=== PATIENT | male | born 1980 | race Caucasian/White ===

== ENCOUNTER → 2019-03-14 | Outpatient (CLI) | payer OTHER ==
--- NOTE | 2019-03-14 12:54 | XR ---
EXAMINATION TYPE: XR elbow complete RT DATE OF EXAM: 03/14/2019 CLINICAL HISTORY: Right elbow pain after hyperextension TECHNIQUE: Frontal, lateral and oblique images of the right elbow are obtained. COMPARISON: None FINDINGS: There is age-indeterminate avulsion of an olecranon osteophyte at the insertion of the tric eps. Minimal soft tissue swelling is seen over the triceps. No abnormal fat pad signs are seen. The overlying soft tissue appears unremarkable. IMPRESSION: Age-indeterminate avulsion fracture of an olecranon enthesophyte at the insertion of the triceps. There is also mild soft tissue swelling over the triceps. Correlate for point tenderness. No additional fracture is seen.
== END | disposition home or self-care (01) ==
LOC: RADXRMAIN 12:25
PROVIDERS: ATTEND Emergency Medicine
DX: M25.421 Effusion, right elbow (principal)

== ENCOUNTER 2020-05-23 18:54 | Emergency (ER) | payer OTHER ==
[2020-05-23] MEDS ORDERED: DIPH,PERTUS(ACELL)TETVAC-LF 0.5 ML VIAL IM ONE (19:42)
[2020-05-23] MEDS ORDERED: ceFAZolin 1,000 MG VIAL (IM USE) IM STA (19:42)
[2020-05-23] MEDS ORDERED: LIDOCAINE 1% INJ 10MG/ML (20 ML MDV) SQ STA (19:43)
--- NOTE | 2020-05-23 20:10 | XR ---
EXAMINATION TYPE: XR hand complete LT DATE OF EXAM: 05/23/2020 COMPARISON: NONE HISTORY: Laceration fourth digit TECHNIQUE: 3 views FINDINGS: There is soft tissue deformity at the tip of the ring finger consistent with laceration. Th ere is also fracture of the tuft of the distal phalanx. There is no dislocation. IMPRESSION: Fracture of the tuft of the distal phalanx of the ring finger left hand with laceration d eformity.
--- NOTE | 2020-05-23 21:05 | ED ---
General Adult HPI - General Chief complaint: Wound/Laceration Stated complaint: Finger injury Time Seen by Provider: 05/23/20 19:13 Source: patient, RN notes reviewed, old records reviewed Mode of arrival: ambulatory Limitations: no limitations - History of Present Illness Initial comments: 39-year-old male patient presents today for evaluation of injury to the left distal fourth digit. Patient reports that he was splitting wood. Patient had a conveyor belts which takes the splint would plus in a pile. Patient reports that the pieces of wood from the conveyor belts fell down crushing his finger between 2 pieces of wood. He has injured the exception of the fourth digit on the left hand. Last tetanus around 5 years ago. Denies any other complaints. Systemic: Pt denies fatigue, fever/chills, rash. Pt denies weakness, night sweats, weight loss. Neuro: Pt denies headache, visual disturbances, syncope or pre-syncope. HEENT: Pt denies ocular discharge or irritation, otalgia, rhinorrhea, pharyngitis or notable lymphadenopathy. Cardiopulmonary: Pt denies chest pain, SOB, heart palpitations, dyspnea on exertion. Abdominal/GI: Pt denies abdominal pain, n/v/d. : Pt denies dysuria, burning w/ urination, frequency/urgency. Denies new onset urinary or bowel incontinence. MSK: Pt denies myalgia, loss of strength or function in extremities. Neuro: Pt denies new onset weakness, paresthesias. - Related Data Previous Rx's Medication Instructions Recorded Cephalexin [Keflex] 500 mg PO Q6HR 10 Days #40 cap 05/23/20 Allergies Allergy/AdvReac Type Severity Reaction Status Date / Time No Known Allergies Allergy Verified 05/23/20 19:02 Review of Systems ROS Statement: Those systems with pertinent positive or pertinent negative responses have been documented in the HPI. ROS Other: All systems not noted in ROS Statement are negative. Past Medical History Past Medical History: Pneumonia, Pulmonary Embolus (PE) History of Any Multi-Drug Resistant Organisms: None Reported Additional Past Surgical History / Comment(s): eye surgery Past Psychological History: No Psychological Hx Reported Smoking Status: Never smoker Past Alcohol Use History: None Reported Past Drug Use History: None Reported General Exam - General Exam Comments Initial Comments: Constitutional: NAD, AOX3, Pt has pleasant affect. HEENT: NC/AT, trachea midline, neck supple, no lymphadenopathy. External ears appear normal, without discharge. Mucous membranes moist. Eyes PERRLA, EOM intact. There is no scleral icterus. No pallor noted. Cardiopulmonary: RRR, no murmurs, rubs or gallops, no JVD noted. Lungs CTAB in anterior and posterior lawson. No peripheral edema. Abdominal exam: Abdomen soft and non-distended. Neuro: CN II-XII grossly intact. No nuchal rigidity. No raccon eyes, no hunter sign, no hemotympanum. No cervical spinal tenderness. MSK: 3 cm laceration to the distal aspect of the fourth digit. Medial to the nail did not affect the nailbed wraps around the distal aspect of the digit. Vigorously irrigated with 1 L of normal saline. Approximated with 5 simple interrupted sutures. Neurovascularly intact before and after suture placement. Capillary refill less than 2 seconds. Full active range of motion of digit. Limitations: no limitations Course Vital Signs 05/23/20 18:57 Temperature 98.1 F Pulse Rate 86 Respiratory 20 Rate Blood Pressure 162/77 O2 Sat by Pulse 98 Oximetry Procedures - Laceration Laceration #1 Consent Obtained: verbal consent Indication: laceration Site: upper extremity (finger 4th digit ) Size (cm): 3 Description: irregular Depth: simple, single layer Anesthetic Used: lidocaine 1% Anesthesia Technique: local infiltration, nerve block Amount (mls): 4 Pre-repair: wound explored, irrigated extensively (1L NS ) Type of Sutures: nylon Size of Sutures: 5-0 Number of Sutures: 5 Technique: simple, interrupted Patient Tolerated Procedure: well, no complications Medical Decision Making - Medical Decision Making 39-year-old male patient with seizure laceration to distal aspect of fourth digit. Recently laceration. Patient will signs stable, afebrile. Tetanus is updated. Wound vigorously irrigated. Plain films Pletal fracture. Wound was approximated with 5 simple sutures. Discussed case with orthopedics Jose Alberto Mensah. They'll see patient in office. We'll place on Keflex 4 times a day. I administered [facility] emergency department. Finger will be immobilized with splint. Case discussed with Dr. Hunt. Disposition Clinical Impression: Laceration, Finger fracture Disposition: HOME SELF-CARE Condition: Stable Instructions (If sedation given, give patient instructions): Laceration (ED), Care For Your Stitches (ED), Finger Fracture (ED) Additional Instructions: follow up with orthopedic consult tomorrow. Follow-up with primary care provider in 1-2 days. Continue to wear finger splint. Please return for suture removal: Hand: 7-10 days Please monitor for signs and symptoms of infection including: redness, warmth, drainage, discharge. Please return to ED if these signs or symptoms occur, new signs or symptoms develop or if condition worsens in anyway. Prescriptions: Cephalexin [Keflex] 500 mg PO Q6HR 10 Days #40 cap Is patient prescribed a controlled substance at d/c from ED?: No Referrals: Kurtis Mandel MD [Primary Care Provider] - 1-2 days Louie Mensah PAC [PHYSICIAN EMPLOYMENT SERVICE SPECIALIST] - 1-2 days
[2020-05-23 21:14] VITALS: RESP 19
[2020-05-23 21:18] VITALS: BP 132/98; PULSE 68; TEMP 97.7
== END 2020-05-23 21:15 | disposition home or self-care (01) ==
LOC: EC 18:54
DX: S61.215A Laceration without foreign body of left ring finger without damage to nail, initial encounter (principal); Z23 Encounter for immunization; W22.8XXA Striking against or struck by other objects, initial encounter; Y92.89 Other specified places as the place of occurrence of the external cause
CPT/HCPCS: 99284; 90471; 96372; 12002; 73130; 90715; J0690; J2001

== ENCOUNTER 2020-05-30 12:59 | Day surgery (SDC) | payer OTHER ==
[2020-05-29 11:23] VITALS: BMI 33.9
[~2020-05-30 12:59] MED LIST: ACETAMINOPHEN TAB 500 MG TAB PO ONE; DEXAMETHASONE SOD PHOSPHATE 10 MG/ML 1 ML VIAL IV ONE; LACTATED RINGERS 1,000 ML IV SCH; LIDOCAINE 1% (10MG/ML) FOR IV START INTRADERMA PRN
[2020-05-30 13:15] VITALS: RESP 16; TEMP 98.2
[2020-05-30] MEDS ORDERED: ONDANSETRON 4 MG/2 ML VIAL ONE (13:16)
[2020-05-30] MEDS ORDERED: ONDANSETRON 4 MG/2 ML VIAL IVP ONE (14:11)
--- NOTE | 2020-05-30 14:27 | P.HPOR ---
History of Present Illness H&P Date: 05/30/20 Chief Complaint: R RF crush injury Patient presents with left ring finger injury. He states that on 05/23/2020 his finger was crushed between two pieces of firewood at his home in the yard. Patient was seen at [facility] ER where he had sutures and was placed in a splint. Patient currently takes Keflex 500mg every 6 hours and daily Aspirin. Patient notes throbbing pain. States intact sensation. Denies any other injury. Review of Systems 14 points review of systems completed and as stated in HPI or otherwise negative. Past Medical History Past Medical History: Deep Vein Thrombosis (DVT), Pneumonia, Pulmonary Embolus (PE) Additional Past Medical History / Comment(s): splint on for sutured and fractured 4th digit left hand-injured between to pieced of wood,hx Alpha-1 Antitrypsin Deficiency affecting lungs,chest tube x3 History of Any Multi-Drug Resistant Organisms: None Reported Additional Past Surgical History / Comment(s): eye surgery,bronchoscopy Past Anesthesia/Blood Transfusion Reactions: No Reported Reaction Smoking Status: Former smoker - Past Family History Mother Additional Family Medical History / Comment(s): Alpha-1 Antitrypsin Deficiency affecting lungs Medications and Allergies Home Medications Medication Instructions Recorded Confirmed Type Cephalexin [Keflex] 500 mg PO Q6HR 10 Days #40 cap 05/23/20 05/29/20 Rx Aspirin 81 mg PO DAILY 05/29/20 05/29/20 History Naproxen Sodium [Aleve] 220 mg PO BID PRN 05/29/20 05/29/20 History Allergies Allergy/AdvReac Type Severity Reaction Status Date / Time No Known Allergies Allergy Verified 05/30/20 13:12 Physical Examination Osteopathic Statement: *. No significant issues noted on an osteopathic structural exam other than those noted in the History and Physical/Consult. General: Well appearing, well nourished in no distress. Finger: left ring finger Tenderness to Palpation: 4th distal phalanx: yes Inspection: Pt has laceration to the radial aspect of the right RF peronychium extending into the nailbed under the nail plate which is still in place. Injury pictures the patient showed me concern me for a nail bed injury due to sub ungual hematoma, extension of the laceration deep to the nail plate that cannot be assessed due to retained nail plate and the fracture nature. Finger Range of Motion: limited scondary to pain. DIP/PTP and MCP joints stable. Finger Strength: normalwith increased pain with ROM of DIP joint. Neuro: Sensation WNL. Results X-Ray: left ring finger: distal phalanx fracture minimal displacement. Assessment and Plan Assessment: 39 yo M, left ring finger distal phalanx tuft fracture with likely nailbed injury, eponychial and peronychial laceration. Plan: Orthopedic Surgery Risk Review Behzad Munguia is a 39 yo RHD male presenting for evaluation of sudden onset RRF pain, swelling laceration and fracture after catching it between two pieces of wood. He was seen in ED, they sutured his laceration but did not evaluate his nail bed. It was my pleasure to have seen and examined Behzad Munguia]. In our visit today we have had a chance to go over subjective complaints, physical examination findings and treatments including the natural course his tory without intervention and various interventional options. His imaging demonstrates distal tuft fracture of RRF with open laceration . On physical exam, Behzad Munguia] demonstrates pain with motion of RRF, which is NV intact at this time. I have explained to the patient that this fracture needs stabilization. Based on the patients imaging, physical exam, and the rapid progression and disabling nature of her symptoms, at this time I recommend surgery in the form or a: I&D with nailbed and laceration repair RRF I discussed the risk and benefits of this procedure at length with Behzad Munguia]. Questions were invited and answered, and the patient wishes to proceed as outlined below. Currently, I am recommendin. Irrigation and debridment of RIGHT RING FINGER with removal of nail plate and possible nailbed repair. 2. Review of surgical risks and benefits as well as an educational packet on the proposed surgical procedure. Risks: All surgical procedures come with inherent risks, including those related to positioning, anesthesia, intraoperative findings, and postoperative complications. It is important to understand that surgery does not come with any guarantee of a successful outcome as complications and adverse events are always possible. The patient was given a handout discussing the surgical procedure and risks associated with the intervention, both of which were discussed with the patient. These risks include but are not limited to the following: - Experiencing same, different or even worse symptoms compared to before surgery. - Requiring further surgery or other forms of treatment presently or at some time in the future . - On an extreme but fortunately relatively rare basis severe complication such as blindness, stroke, heart attack, temporary and/or permanent nerve injury, paralysis, coma, or may occur, sometimes without known explanation. - Surgical complications may include but are not limited to risk of infection, fluid accumulation in the surgical dissection site, including a seroma or hematoma, that requires additional surgery, wound drainage, bleeding, new numbness or weakness, vision changes/loss, spinal fluid leakage, non-healing and/or infected incision, headaches, difficulty or inability to swallow, hoarseness, hemopneumothorax, pneumothorax, injury to nerves, spinal cord, blood vessels, lymphatics or other vital organs (i.e., bowel injury, injury to the great vessels); heterotopic bone formation; complications related to the hardware such as screws, rods, including misplaced hardware, device failure, hardware fracture/breakage, or hardware loosening; retained surgical instrumentations or devices and the need for further surgery. - Medical risks of the planned surgery include but are not limited to generalized Infections to the whole body or local areas outside of the surgical site (sepsis), heart attack, bleeding, anaphylaxis, meningitis, seizure, epilepsy, hearing loss, burn carbajal, laceration of the head or other areas of the body, bruising, hypersensitivity of the skin, bladder over distension; allergic reaction; shoulder injury related to positioning; fat, blood and air clots to other areas of the body like heart, lungs, brain; failure of internal organs such as lungs, kidneys, liver and excessive bleeding. If blood transfusions are necessary, note that transfusions may cause intolerance reactions such as anaphylaxis or other complex reactions. Despite best efforts, the results of surgery might not heal in terms of bone, soft tissues such as skin, fascia, ligaments, and joints. [facility] is an educational center that serves as a training facility for physician assistants, nurses, orthopedic residents and fellows. Residents are physicians who are completing their surgical intensive training following medical school. They assist in the operating room with direct supervision of the attending surgeons. [place] are surgeons who have completed their training and eligible for board certification. They have opted for an elective year of more specialized training in their field. They assist in the operating room under the supervision of the attending surgeons. Physician assistants are medically trained surgical providers who function in the outpatient, inpatient, and operating room setting under the direct supervision of the attending surgeon. [facility] has multiple operating rooms with single and overlapping rooms running daily. They currently function under the required guidelines as produced by the [facility] Finance Committee with regards to the overlapping rooms and will continue to comply with changes to this policy as they occur. The requirements include and are complied with as follows: (1) the critical portions of the overlapping rooms will not occur at the same time, (2) the attending physician will be physically present during the critical portions of the procedure and immediately available during the entire case, and (3) a back-up attending is designated should the primary attending not be immediately available. The patient has had a chance to review all the listed information, has been given print outs detailing this information, and has had all his/her questions answered to their satisfaction. It was my pleasure to have seen and examined [Behzad Munguia]. In our visit today we have had a chance to go over my understanding of our patient's current condition, the natural course history without intervention and various interventional options. Questions were invited and answered, and the patient wishes to proceed as outlined above. I have seen and examined the patient for 25 minutes and we have spent more than 50% of the time in repeat and detailed counseling about the patient's condition, its natural course history with out and as much as can be predicted with surgery and re-review of various surgical treatment options. In conclusion,Behzad Munguia] requested we proceed with the above suggested surgery and are willing to accept risks and limitations of the suggested surgery as nature of the disease process and our best attempts at treatment for the co ndition. Thank you again for allowing us to be part of your patient's care. Please don't hesitate to contact me if you have any further questions. Signed and authenticated by: Jamie De Leon Emiliano Galan [facility] [address], [address] [address]
[2020-05-30] MEDS ORDERED: fentaNYL (PF) 50 MCG/ML 2 ML AMP ONE (14:32)
[2020-05-30] MEDS ORDERED: MIDAZOLAM 2 MG/2 ML VIAL ONE (14:32)
[2020-05-30] MEDS ORDERED: LIDOCAINE 1% INJ 10MG/ML (20 ML MDV) ONE (14:32)
[2020-05-30] MEDS ORDERED: PROPOFOL 10 MG/ML 20 ML VIAL IV ONE (14:32)
[2020-05-30] MEDS ORDERED: BUPIVACAINE (PF) 0.5% 30 ML VIAL SQ ONE (14:34)
[2020-05-30] MEDS ORDERED: ceFAZolin 1,000 MG in SODIUM CHLORIDE 0.9% 1,000 ML IRRIGATION ONE ×2 (14:42→14:55)
[2020-05-30] MEDS ORDERED: BACITRACIN OINT 1 EACH PACKET TOPICAL ONE (15:06)
[2020-05-30 15:50] VITALS: BP 121/74; PULSE 64
--- NOTE | 2020-05-30 16:29 | P.OP ---
Date of Procedure: 05/30/20 Preoperative Diagnosis: LRF tuft fracture with nail bed laceration and paronychial laceration. Postoperative Diagnosis: LRF tuft fracture with nail bed laceration and paronychial laceration. Procedure(s) Performed: 1. Incisional Irrigation and debridement of Left ring finger skin soft tissue and bone using curette, knife, and scissors, no excisional component. Wound was 2 cm x 1 cm at the distal tip of the LRF extending into the ulnar paronychal fold 2. Nail plate removal with complex nail bed repair of LRF 3. Paronychial fold repair with ulnar sided laceration repair distal phalanx left ring finger Implants: None Anesthesia: local Surgeon: Jamie Lacy Estimated Blood Loss (ml): 2 IV fluids (ml): 100 Urine output (ml): 0 Pathology: none sent Condition: stable Disposition: PACU Indications for Procedure: Patient presents with left ring finger injury. He states that on 05/23/2020 his finger was crushed between two pieces of firewood at his home in the yard. Patient was seen at [facility] where he had sutures and was placed in a splint. Patient currently takes Keflex 500mg every 6 hours and daily Aspirin. Patient notes throbbing pain. States intact sensation. Denies any other injury. Operative Findings: LRF complex nailbed laceration with ulnar sided paronychial fold laceration extending proximally to the PIP joint of the left ring finger on the ulnar dorsal side approximately 2 cm x 1 cm extending through soft tissue into bone with a distal phalanx tuft fracture. Description of Procedure: The patient was seen and examined in the preoperative area. All preoperative protocols were followed. Informed consent was obtained risks and benefits of the procedure were discussed at length. Risks including bleeding infection damage to the surrounding tissue and risk of reoperation were discussed with the patient. Risk of anesthesia up to and including was a discussed with the patient. These are outlined in the risk reviewed. They were willing to accept these risks and all of the risks of surgery. The patient was given a weight- based dose of antibiotics in the form of 2 g of Ancef IVPB 1 preoperatively. The patient was seen and evaluated by the anesthesia team who deemed them fit for surgery. The site was marked, the patient was willing to proceed with the procedure. The patient was transferred to the operative suite by the Department of anesthesia. There were then drifted off to sleep by the department of anesthesia and sedation with local anesthetic anesthesia was used. Once adequate anesthesia had been obtained the patient was carefully transferred to the operative bed. All bony prominences were padded accordingly. SCDs were placed on the nonoperative lower extremities. Arms were well padded. Left upper extremity was exposed and placed on the arm board. Preoperative briefing was done with the operative team and everyone was ready for the procedure to start. The patients left upper extremity was then prepped and draped in the normal sterile fashion. Timeout was then performed and all parties in agreement with the procedure to be performed. A digital block was performed on the volar and dorsal surface with 0.5% Marcaine 10 mL. Once adequate anesthesia had been obtained the patient's left ring finger was identified. The nylon sutures which were in place were removed and discarded. Finger tourniquet was applied. The nailplate was then bluntly removed using a [place] elevator. This revealed a complex laceration to the distal portion of the patient's nailbed. The germinal matrix was completely intact however the distal sterile matrix had a complex laceration of that included the peritracheal fold on the ulnar side and extension proximally approximately 1 cm. The wound was copiously irrigated with 3 L of normal sterile saline and debrided using a comminution of curet [place] elevator and tenotomy scissors. The skin and soft tissue were debrided as well as the distal tuft fracture. The nailbed was then approximated using 5-0 Vicryl stitch in a simple fashion. This allowed for good approximation and reduction of the fracture. This was taken across towards the ulnar peritracheal fold. Once this was reached 4-0 chromic was used to approximate the paronychial folds and to fix the laceration that extended proximally from this region. The skin edges approximated very well as well did the nailbed. The finger tourniquet was dropped and there was good capillary refill noted. A false nail was fashioned out of a fake nail and placed in the eponychial fold to maintain germinal matrix patency. The wound was then dressed with sterile bacitracin Adaptic 4 x 4's and Kerlix and overwrapped with an Levi wrap. The patient was then transferred back to their hospital bed. There were awakened by department of anesthesia having tolerated the procedure very well with no complications. The patient was then transported to the postoperative care unit in stable condition.
== END 2020-05-30 15:57 | disposition home or self-care (01) ==
LOC: OR 12:59
PROVIDERS: ATTEND Orthopaedic Surgery
DX: S61.315A Laceration without foreign body of left ring finger with damage to nail, initial encounter (principal); S62.635A Displaced fracture of distal phalanx of left ring finger, initial encounter for closed fracture; E88.01 Alpha-1-antitrypsin deficiency; Z86.718 Personal history of other venous thrombosis and embolism; Z87.01 Personal history of pneumonia (recurrent); Z86.711 Personal history of pulmonary embolism; Z98.890 Other specified postprocedural states; Z87.891 Personal history of nicotine dependence; Z79.82 Long term (current) use of aspirin; Z83.49 Family history of other endocrine, nutritional and metabolic diseases; W23.0XXA Caught, crushed, jammed, or pinched between moving objects, initial encounter; Y92.017 Garden or yard in single-family (private) house as the place of occurrence of the external cause
CPT/HCPCS: 11760; 11042; J2250; J1100; J0690 ×2; J2405; J2001; J3010; J2704

== ENCOUNTER → 2022-08-09 | Outpatient (CLI) | payer OTHER ==
--- NOTE | 2022-08-09 16:54 | US ---
EXAMINATION TYPE: US scrotum with doppler. Grayscale and color Doppler Duplex imaging performed of t alexys scrotum. DATE OF EXAM: 08/09/2022 COMPARISON: NONE CLINICAL HISTORY: N50.89 disorders of male genital organs. EXAM MEASUREMENTS: TESTICLES: Right Testicle: 3.5 x 1.9 x 2.7 cm Left Testicle: 5.1 x 3.0 x 4.7 cm EPIDIDYMIS HEAD: Right Epididymis: unable to visualize due to large hydrocele Left Epididymis: 0.9 cm Doppler performed to assess for testicular vascularity; good bilateral color flow and waveforms are s een. There is no evidence of testicular torsion. Right hydrocele measuring 8.6 x 3.8 x 8.7cm Presence of varicoceles: Scattered calcifications noted in right testicle IMPRESSION: 1. Large right hydrocele. 2. Scattered right testicular microlithiasis. 3. Appropriate arterial and spectral venous waveforms bilaterally.
== END | disposition home or self-care (01) ==
LOC: RADUSWWP 15:28
PROVIDERS: ATTEND Urology
DX: N43.3 Hydrocele, unspecified (principal); N50.89 Other specified disorders of the male genital organs
CPT/HCPCS: 76870; 93975